=== PATIENT | female | born 1990 | race Caucasian/White ===

== ENCOUNTER 2022-08-05 06:07 | Day surgery (SDC) | payer OTHER, SELFPAY ==
[2022-08-05] VITALS (12 sets, daily range): BP systolic 101–129; BP diastolic 62–72; PULSE 71–93; RESP 14–16; TEMP 36.8–37.4; O2SAT 96–100; BMI 18.9
--- NOTE | 2022-08-05 06:20 | EKG12_ITS ---
Test Reason : PREOP Blood Pressure : / mmHG Vent. Rate : 085 BPM Atrial Rate : 085 BPM P-R Int : 110 ms QRS Dur : 078 ms QT Int : 362 ms P-R-T Axes : 013 088 047 degrees QTc Int : 430 ms Sinus rhythm with short IN with Premature atrial complexes Otherwise normal ECG No previous ECGs available Confirmed by DELFINO MENDOZA, JOVON ([id number]), department editor AURELIA PRICE ([id number]) on 08/09/2022 8:54:51 AM Referred By: Vishal Torres Confirmed By:JOVON SALEH MD
--- NOTE | 2022-08-05 06:30 | HP.PCM_ITS ---
History and Physical Date of Admission: 08/05/22 isit Reasons:?RUQ PAIN AND SLUDGE ON US Chief Complaint: RUQ pain Radio Machinist Required: No Is patient in pain?: Yes Allergies No Known Allergies Allergy (Unverified 07/05/22 14:04) Medications NK? 07/05/22 [History Confirmed 07/05/22] PFSH Family History?(Updated 07/05/22 @ 14:01 by Tiffanie Castellon) Mother High cholesterol ArthritisGrandmother OsteoporosisSister Asthma HPI HPI HPI: 32-year-old female was referred by Julissa Freeman PA-C regarding right upper quadrant pain and a written copy of my surgical consult recommendations will be returned to her.? She had a liver ultrasound on January 05, 2022 showing some hemangiomas of the liver.? She was seen at the [facility] emergency room on June 13, 2022 with complaint of right upper quadrant pain.? She was awakened in the middle the night.? Her white blood cell count was normal.? Lipase was normal.? Liver function tests were normal.? 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 Debris within the gallbladder.? Common bile duct measures 0.4 cm. Patient states a year ago she had severe epigastric pain that radiated to the right upper quadrant.? Lasted for couple days she is associated with fatty food eating she changed her diet seem to have less trouble over the past year to still noticed that she was having bouts of pain but she could tolerated about 3 weeks ago she had a severe episode that lasted 3 days woke her up at night and finally she went to the emergency room as noted above and was evaluated. She has had 3 children all spontaneous vaginal deliveries without complication.? She does exercise by lifting weights and running. ROS General General: No weight change, appetite, fatigue, colon cancer, breast cancer or weakness HEENT HEENT: No difficulty swallowing, eye injury, eye surgery, swollen glands or hoarseness Endo Endocrine: No thyroid disease, diabetes mellitus, thyroid cancer, Hair loss, heat intolerance or cold intolerance Skin Skin: No rash or changing moles Breast Breast: No left breast lump, right breast lump, nipple discharge, breast pain, abnormal mammogram, abnormal US or breast enlargement Musc Musculoskeletal: No back problems, arthritis, rheumatoid arthritis, gout or joint pain Cardio Cardiovascular: No murmur, pacemaker, heart disease, atrial fibrillation, high blood pressure, heart attack, heart stent, palpitations, shortness of breat with exertion or chest pain Psych Psychiatric: No depression, anxiety or hearing voices Gastro Gastrointestinal: Yes abdominal pain, No nausea or vomiting, No diarrhea, No constipation, No blood in stool, No acid reflux, No hemorrhoids, No ulcers, Yes gallbladder problem and No black,tarry stools Emil Hematologic: No blood thinners, No blood disorders, No bleeding, No anemia and No blood clots Neuro Neurologic: No system reviewed and no additional complaints, except as documented, No as per HPI, No abnormal gait, No abnormal hearing, No abnormal movements, No abnormal speech, No behavioral changes, No burning sensations, No confusion, No convulsions, No disequilibrium, No dizziness, No localized weakness, No frequent falls, No headache(s), No lack of coordination, No loss of vision, No memory loss, No numbness, No other visual disturbances, No radicular pain, No restless legs, No sensory deficit, No syncope, No tingling, No tremor(s), No weakness and No other Exam Const General: cooperative, healthy appearing, comfortable and no acute distress [facility] Head: normal to inspection Eyes General: appearance normal, both eyes and all related structures Neck Neck: normal visual inspection Chest Chest palpation & inspection: normal inspection of the chest Resp Effort & Inspection: normal respiratory effort Auscultation: clear to auscultation bilaterally Cardio Rate: regular rate Rhythm: regular rhythm GI Inspection: normal to inspection Palpation: soft and no hepatosplenomegaly Skin General: no rashes or lesions noted Neuro General: patient alert, patient awake and patient oriented x3 Extrem General: no calf tenderness Psych Appearance: grossly normal Assessment and Plan Assessment and Plan (1) Chronic cholecystitis: ?Status:?Chronic ?Plan: 32-year-old female who symptoms are very much consistent with chronic cholecystitis and biliary colic.? I do recommend to the patient a laparoscopic cholecystectomy with selective cholangiography and I discussed the technique, benefit, risk of alternatives.? She has had an opportunity to ask and have questions answered.? We will schedule procedure at her discretion. Copy: Dr. Elmer Torres M.D., F.A.C.S.
--- NOTE | 2022-08-05 06:31 | DCINST_ITS ---
Discharge Instructions Procedure General Surgery Diet Discharge Diet: Light diet - advance as tolerated (if you have questions about your diet instructions, please talk to you doctor.) Activity Discharge Activity: May Not Drive (for 3-5 days or while taking narcotic pain medicine.) May shower in (days): 1 Lifting Restrictions: 10 pounds Dressing / Incision Call your doctor if your incision/area has: Continuous Slow Oozing, Sudden Increased Bleeding, Increased Pain/ Swelling, Increased Redness and Foul Smelling Discharge Call your doctor if you observe: Fever of 101 or Higher Suture Line Care: Avoid Pulling/Pushing and Avoid Pinching/Bending Additional Dressing/Incision Instructions:: Change or remove dressing in 4 days. Leave steri-strips in place for 1 week. Follow Up Care Please Follow Up With: Vishal Torres MD When: Call [phone] to make an appointment to be seen in about 10 days. Test Results: Test results from this visit will be discussed in further detail at your follow- up appointment, if applicable. Discharge Plan Admission Attending Provider: Vishal Torres Primary Care Provider: Julissa Freeman Discharge Orders/Prescriptions Prescriptions: No Action NK Other Ambulatory Orders: 12 Lead EKG (Routine) Timeframe: [id number] Location: None Selected Ordered By: Dr. Jerrod Queen Referrals / Follow Up: Julissa Freeman PA [Primary Care Provider] - Disposition Disposition (needs filled in before D/C Order can be placed): Home, Self Care
[2022-08-05 06:48] LABS: Internal QC Validated? YES +Cl - CLEAR BKGD; Pregnancy, Urine Negative Negative
[2022-08-05] MEDS: Lactated Ringers 1,000 ML 15 ML IV ×2 (07:01→09:01)
[2022-08-05] MEDS: Bupivacaine 0.25% 30 ML Vial (07:21)
--- NOTE | 2022-08-05 07:30 | GALL_PTH ---
PATIENT: KARY ARREAGA LOC: [facility] U#:[id number] AGE/SX: 32/F ROOM: RE08/05/[address]: Dr. Vishal Torres MD : [id number] BED: DIS: 08/05/2022 SPEC #: [id number] RECD: 08/05/22 11:11 STATUS: NELY RE #: [id number] JAVIER: 08/05/22 07:[address]: Vishal Torres DEPT: SURGICAL PATHOLOGY RECD BY: Barbara Currie ENTERED: 08/05/22 11:42 SP TYPE: RAYNA HERNÁNDEZ DR: CHRISTINE Lisa Tissues: A - Gallbladder, NOS B - APPENDIX (INCIDENTAL) Procedures: Surgery Specimen Level II Surgery Specimen Level III Surgery Specimen Level IV HEADER OPERATION: Laparoscopic, cholecystectomy with IOC and umbilical hernia PRE-OP DIAGNOSIS: Biliary colic and chronic cholecystitis TISSUE SUBMITTED: A. Gallbladder, B. Appendix and Meckle?s diverticula MICROSCOPIC DIAGNOSIS A. Gallbladder, cholecystectomy: Minimal chronic cholecystitis. B. Appendix and Meckle?s diverticula: Appendix, no pathologic diagnosis. A small segment of bowel consistent with Meckle?s diverticulum. See comment. SJ:rg 08/08/2022 COMMENT B. The Meckle?s diverticulum is lined by in most of the specimen by small intestinal mucosa and focal area is lined by gastric mucosa. This case has been reviewed in consultation with Dr. Quach who concurs with the above diagnosis. MICROSCOPIC DESCRIPTION Slides are reviewed. GROSS DESCRIPTION A - Received is one container labeled with the patient's name and designated gallbladder. The specimen consists of a gallbladder measuring 5.5 cm in length and 3 cm in diameter. The external surface is pink-plummer, smooth and glistening for the most part. Focally it is granular, hemorrhagic and contains cautery artifact. The gallbladder contains green-yellow mucoid bile. No stones are identified in the container or in the gallbladder. The mucosa is bile-stained and without any mass lesions. The gallbladder wall measures 0.2 cm in thickness. Pigment Weigher sections from the gallbladder and the cystic duct are submitted in one cassette. B - Received in fixative is one container labeled with the patient's name and designated appendix and Meckle?s diverticula. The specimen consists of a C-shaped appendix measuring 7 cm in length and up to 1 cm in diameter. The serosa is mildly congested. No obvious perforation is identified. The lumen is dilated in the middle and contains two black fecaliths measuring 0.7 and 0.5 cm in greatest dimension. Sections reveal unremarkable cut surfaces. Also present in the container is a diverticulum measuring 4.5 cm in length and 2.5 cm in diameter. One resection margin is stapled. This lumen is filled with bloody fluid. No mass lesion is identified. Pigment Weigher sections are submitted in six cassettes as follows: 1 ? appendix, 2-5 diverticulum (2 ? resection margin, 3-6 ? entire Meckle?s diverticulum. Cassette 6 also contains the blind tip of the diverticulum). / RYAN:chula 08/05/2022 TC:5 CPT: 48165, 83788, 70694
[2022-08-05] MEDS: Cefazolin 2 GM in 0.9% Normal Saline 100 ML IV (07:35)
--- NOTE | 2022-08-05 07:52 | RAD_ITS ---
STUDY: INTRAOPERATIVE CHOLANGIOGRAM. REASON FOR EXAM: Female, 32 years old. LAP RENETTA WITH IOC FLUOROSCOPY TIME (if supplied): ( 15 seconds ) minutes/seconds. A cine run of 93 images was submitted. TECHNIQUE: Intraoperative glandular was performed by the surgeon. Imaging was submitted. COMPARISON: None. FINDINGS: The intra and extrahepatic biliary ducts are unremarkable. No intraluminal filling defect is seen. There is free flow of contrast into the duodenum. RAD/Cholangiogram/ O R,Initial IMPRESSION: Unremarkable intraoperative cholangiogram. Electronically Signed: Parag Hull MD at 12:06 EST ,
--- NOTE | 2022-08-05 09:39 | PCM.OPRPT ---
Report of Operation Date of Procedure: 08/05/22 Pre-Operative Diagnosis: Chronic cholecystitis cholelithiasis Post-Operative Diagnosis: Chronic cholecystitis cholelithiasis Suspected appendiceal fecalith Meckel's diverticulum Umbilical hernia Surgery/Procedure Performed:: Laparoscopic cholecystectomy with cholangiograms. Laparoscopic appendectomy. Laparoscopic Meckel's diverticulectomy. Umbilical herniorrhaphy Description of Surgical Findings:: Timeout informed consent was obtained. 32-year-old female was taken to the operating placed on the table underwent general endotracheal intubation anesthesia. Ancef 2 g were given intravenously. The abdomen sterilely prepped and draped. A curvilinear incision was made in the inferior portion of the umbilicus sharp dissection carried down through the subcutaneous tissue a 2.5 cm umbilical hernia was encountered the umbilical skin was carefully dissected free. Then I placed an Vazquez catheter the abdomen was insufflated with CO2 to a pressure of 10 mmHg pressure. 5 mm trochars were placed in the epigastric right upper quadrant and right lateral upper quadrant areas. The patient was placed in the first Trendelenburg position the gallbladder was distracted blunt dissection was instituted at the infundibular area and the critical view was achieved clearly identifying the cystic artery and cystic duct. Hem-o-jennifer clips were placed where appropriate. The artery was clipped twice proximally once distally Hem-o-jennifer clip was placed on the cystic duct incision in the cystic duct cholangiogram catheter was inserted to 14-gauge Angiocath and fluoroscopically controlled cholangiograms were obtained demonstrating normal ductal anatomy and free flow into the small bowel. 2 Hem-o-jennifer clips were placed on the cystic duct stump prior to transecting it the artery had already been secured and transected Hemoclip was placed at the liver bed for further hemostasis the gallbladder was dissected free gallbladder wall was very thin and I did have bile spillage. This was rapidly collected felt that I saw 1 stone very small that was aspirated in the suction device. The gallbladder was released and put in a retrieval bag. The right upper quadrant was irrigated and aspirated free of excess fluid. Upon looking into the right abdomen however it became apparent that the appendix was jutting up and appeared to be thickened. There appeared to be an appendicolith and while looking in that direction a Meckel's diverticulum was identified as well. Nursing presented out to the with my recommendations to proceed with a laparoscopic appendectomy and laparoscopic Meckel's diverticulitis currently and he consented for his . A window was made in the mesoappendix a [place] stapler used to transect the appendix flush with the cecum vascular right stapler was used to transect the mesoappendix additional Hem-o-jennifer clip was placed for hemostasis Meckel's diverticulum was quite long was placed on stretch the [place] stapler was placed parallel with the bowel secured and fired. Meckel's was nicely released both the Meckel's and the appendix placed in a retrieval bag. The right upper quadrant was irrigated and aspirated. Fluid there is some slight oozing from some of the soft tissues. After placing couple Hem-o-jennifer clips I then placed fibular adjacent to the cecum ascending: And hemostasis was intact. Liver bed was inspected it was dry and intact. The abdomen was allowed to deflate through an antiviral valve. All specimens were removed through the umbilical site. Now the patient is so slender that I initially closed umbilical site with simple sutures of 0 Nurolon but the knots could easily palpable so that I remove those and we did that closure with buried knots. Then skin edges were approximated opted for Monocryl subdermal stitches. Steri-Strips Telfa OpSite dressings applied. Sponge and instrument and needle counts were reported to the surgeon to be correct. Specimens gallbladder and appendix and Meckel's. Drains none. Blood loss 20 cc. The patient was taken to the recovery area in satisfactory addition without apparent complication Vishal Torres M.D., F.A.C.S. Surgeon: Vishal Torres Type of Anesthesia: General and Local Anesthesiologist: Armando Garcia
[2022-08-05] MEDS: HYDROcodone Bitartrate/Apap 5/325 Tablet PO ×2 (11:45→13:07)
--- NOTE | 2022-08-05 12:53 | SUR.PHASEII ---
Per Dr Torres, if pt meets criteria can be d/c
== END 2022-08-05 15:48 | disposition home or self-care (01) ==
LOC: SDC 06:12 → AC 06:15
PROVIDERS: Anesthesiology; PCP Physician Assistant; Referring Provider Surgery; Visit Provider Surgery
PROC: (CPT 47610; principal; 2022-08-05 07:10)
DX: K80.10 Calculus of gallbladder with chronic cholecystitis without obstruction (principal); K42.9 Umbilical hernia without obstruction or gangrene; Q43.0 Meckel's diverticulum (displaced) (hypertrophic); D18.03 Hemangioma of intra-abdominal structures
CPT/HCPCS: 47563; 44970; 44238; 49585; 00790; 74300; 76000; 81025; 88302; 88304; 88305; 93005; J7120; J2405